=== PATIENT | male | born 1950 | race Caucasian/White ===

== ENCOUNTER 2022-05-25 09:02 | Observation (INO) | payer MEDICARE, BC ==
[2022-05-23 15:36] LABS: BASOPHILS # (AUTO) 0.1 X10'3 (0-0.2); BASOPHILS % (AUTO) 0.9 % (0-1); EOSINOPHILS # (AUTO) 0.2 X10'3 (0-0.9); EOSINOPHILS % (AUTO) 2.5 % (0-6); LYMPHOCYTES # (AUTO) 1.7 X10'3 (1.1-4.8); LYMPHOCYTES % (AUTO) 22.1 % (21-51); MEAN CORPUSCULAR HEMOGLOBIN 30.3 PG (27.0-31.0); MEAN CORPUSCULAR HGB CONC 32.7 g/dL (33.0-36.5); MEAN CORPUSCULAR VOLUME 92.5 FL (78-98); MEAN PLATELET VOLUME 8.3 FL (7.4-10.4); MONOCYTES # (AUTO) 0.5 X10'3 (0-0.9); MONOCYTES % (AUTO) 6.4 % (2-12); NEUTROPHILS # (AUTO) 5.1 X10'3 (1.8-7.7); NEUTROPHILS % (AUTO) 68.1 % (42-75); PRE OP HEMATOCRIT 44.7 % (42.0-52.0); PRE OP HEMOGLOBIN 14.6 g/dL (14.0-17.9); PRE OP PLATELET COUNT 382 X10'3 (140-440); RED BLOOD COUNT 4.83 X10'6 (4.70-6.10); RED CELL DISTRIBUTION WIDTH 14.3 % (11.5-14.5)
[2022-05-23 15:44] LABS: CLARITY,URINE SLIGHTLY CLOUDY (Clear); COLOR,URINE YELLOW (Yellow); GLUCOSE, URINE NEGATIVE (Neg); KETONES,URINE NEGATIVE (Neg); LEUKOCYTE ESTERASE ,URINE MODERATE (Neg); NITRITES, URINE NEGATIVE (Neg); OCCULT BLOOD,URINE NEGATIVE (Neg); PROTEIN,URINE NEGATIVE (Neg); UROBILINOGEN,URINE 0.2 E.U/dL (0.2-1.0)
[2022-05-23 15:45] LABS: UA COLLECTION TYPE CLN CATCH MIDSTREAM
[2022-05-23 15:52] LABS: AMORPHOUS URATES 1+; BACTERIA,URINE 2+ /HPF (Neg); RBC,URINE NONE SEEN /HPF (0-2); SQUAMOUS EPITHELIAL CELL,UR FEW /LPF (FEW)
[2022-05-23 15:53] LABS: AMORPHOUS PHOSPHATES 1+
[2022-05-23 15:58] LABS: ALBUMIN 4.1 G/DL (3.4-5.0); ALBUMIN/GLOBULIN RATIO 1.2 (1.1-1.5); ALKALINE PHOSPHATASE 89 IU/L (46-116); BLOOD UREA NITROGEN 13 MG/DL (7-18); BUN/CREATININE RATIO 12.1 (5.4-32.0); CALCIUM 9.8 MG/DL (8.5-10.1); CHLORIDE 105 MMOL/L (99-107); CREATININE 1.07 MG/DL (0.60-1.10); PRE OP ALT 30 U/L (30-65); PRE OP ANION GAP 8 (8-16); PRE OP AST 19 U/L (10-37); PRE OP BILIRUB, TOTAL 0.5 MG/DL (0.0-1.0); PRE OP GLUCOSE 140 MG/DL (70-104); PRE OP POTASSIUM 3.8 MMOL/L (3.4-5.1); PRE OP SODIUM 140 MMOL/L (135-145); TOTAL CARBON DIOXIDE 27.4 MMOL/L (24-32); TOTAL PROTEIN 7.5 G/DL (6.4-8.2); eGFR 68 ML/MIN
[2022-05-25] VITALS (26 sets, daily range): BP systolic 123–191; BP diastolic 71–118
[~2022-05-25] VITALS: Ht 188 cm; Wt 112.0 kg
[~2022-05-25 09:02] MED LIST: ATOR20TA66 PO; METF-1203 PO; PIOG30TA71 PO; ceFAZolin inj. 2,000 MG in dextrose 5%-water 100 ML IV ONE; famotidine 20mg tablet PO ONE; ringers solution, lacted 1,000 ML IV SCH
--- NOTE | 2022-05-25 09:10 | NUR ---
PT PREPPED FOR SURGERY. PT STATES HE WAS UNABLE TO BE IN THE HOSPITAL WHEN HIS HAD CHILDREN BECAUSE HE REACTES TO BEING IN THE HOSPITAL. BLOOD PRESSURE ELEVATED, RECHECKED AND REMAINS ELEVATED. ANESTHESIA AT BEDSIDE, AWARE OF HYPERTENSION. PT SHAVED AND WIPED BY [facility] TECH. LARGE HERNIA NOTED ON LEFT SIDE, PT STATES SCROTUM IS SWOLLEN AND PENIS IS PUSHED TO THE SIDE ALSO. AT BEDSIDE
[2022-05-25] MEDS ORDERED: labetalol 20mg/4ml (5mg/ml) syringe IV PRN (09:35)
[2022-05-25] MEDS ORDERED: hydrALAZINE 20mg/ml inj. IV PRN (09:35)
[2022-05-25] MEDS ORDERED: ondansetron/PF 4mg/2ml inj IV PRN ×2 (09:35→18:10)
[2022-05-25] MEDS ORDERED: ringers solution, lacted 1,000 ML IV SCH (09:35)
[2022-05-25] MEDS ORDERED: fentaNYL/PF 50MCG/1 ML 2ML syringe IV PRN ×2 (09:35)
[2022-05-25] MEDS ORDERED: BUPIVAcaine 0.5% inj/PF 30 ML ONE (11:55)
[2022-05-25] MEDS ORDERED: LIDOcaine 1% 30ml preserv. free vial ONE (11:55)
[2022-05-25] MEDS ORDERED: sevoflurane 250ml liquid IH ONE (13:20)
[2022-05-25] MEDS ORDERED: neostigmine methylsulfate 1 MG/ML 10ml vial ONE (13:20)
[2022-05-25] MEDS ORDERED: dexamethasone sod phosphate 10mg/ml inj ONE (13:20)
[2022-05-25] MEDS ORDERED: midazolam 1 mg/ML 2ml injection ONE (13:31)
[2022-05-25] MEDS ORDERED: fentaNYL/PF 50MCG/1 ML 2ML syringe ONE ×2 (13:31→14:35)
[2022-05-25] MEDS ORDERED: propofol inj 20 ML IV ONE (13:59)
[2022-05-25] MEDS ORDERED: BUPIVAcaine 0.5% inj/PF 30 ml vial IJ ONE (13:59)
[2022-05-25] MEDS ORDERED: rocuronium 10mg/ml inj IV ONE ×2 (14:00→14:35)
[2022-05-25] MEDS ORDERED: metoclopramide 5 mg/ml inj ONE (14:00)
[2022-05-25] MEDS ORDERED: glycopyrrolate 0.2mg/ml inj ONE (14:00)
[2022-05-25] MEDS ORDERED: ondansetron/PF 4mg/2ml inj ONE (14:00)
[2022-05-25] MEDS ORDERED: hydrALAZINE 20mg/ml inj. IV ONE (14:06)
[2022-05-25] MEDS ORDERED: labetalol 20mg/4ml (5mg/ml) syringe IV ONE (14:06)
[2022-05-25] MEDS ORDERED: LIDOcaine 1%/PF 5ML 10 MG/ML VIAL ONE (14:43)
--- NOTE | 2022-05-25 15:27 | NUR ---
Received from OR via [facility], accompanied by Anesthesiologist DR MENDOZA and report given by Anesthesiologist AND FUEL AGENT. PT AGITATED ATTEMPTING TO GET OOB, NOT FOLLOWING DIRECTIONS OR COMMANDS. ORDERS GIVEN BY DR MENDOZA TO GIVE PT 6 MG MORPHINE. GIVEN ORDERED, PT CONTINUES TO ATTEMPT TO GET OOB AND NOT FOLLOWING COMMANDS,DIRECTIONS, ORDERS TO GIVE ANOTHER 4 MG MORPHINE. GIVEN. PT BECOMING MORE COOPERATIVE AND IS ALBE TO FOLLOW DIRECTIONS, NOT ATTEMPTING TO GET OOB. PT APPEARS LESS PAINFUL. REPEAT DOSE OF 2 MG GIVEN, PT STATES PAIN IS IMPROVING. Addendum: 05/25/22 at 1612 by Catarina Grigsby RN Amended: Links added.
[2022-05-25] MEDS: morphine 2 MG/ML inj. syringe IV PRN ×3 (15:40→16:13)
[2022-05-25] MEDS: morphine 4 MG/ML inj SYRINge IV PRN ×2 (15:40→15:50)
[2022-05-25] MEDS ORDERED: traMADol 50MG tablet PO PRN (18:10)
[2022-05-25] MEDS ORDERED: naloxone 0.4 mg/ml inj IV PRN (18:10)
--- NOTE | 2022-05-25 18:20 | NUR ---
D/C INSTRUCTIONS GIVEN AND GONE OVER W/PT AND PTS WHO VERBALIZED UNDERSTANDING. RN ASSIST PT TO GET DRESSED, PT SITTING AT SIDE AND BED AND STATED HE FEELS WEAK AND WOULD LIKE TO STAY OVERNIGHT. VSS, BP 170/105, CALL INTO DR TYLER AND UPDATED, ORDERS RECEIVED TO KEEP OVERNIGHT. REPEAT BP 142/92. PT REMAINS RESTING. REPORT TO RECEIVING DAPHNE ANDINO. Addendum: 05/25/22 at 1828 by Catarina Grigsby RN Amended: Links added.
--- NOTE | 2022-05-25 19:00 | NUR ---
Patient in room . I have received report from Michael SERNA and had the opportunity to ask questions and assume patient care.
--- NOTE | 2022-05-25 19:00 | NUR ---
PATIENT A&OX4, DENIES PAIN, V/S WNL, CSM INTACT, LAP SITES TO ABDOMEN CDI, SCD ON, 30G PIV RUE, F/C DRAINING CLEAR YELLOW URINE. PATIENT TAKEN TO 350A WITH ALL BELONGINGS AND AT BEDSIDE. PATIENT HOOKED UP TO MONITORS IN ROOM AND REPORT GIVEN TO RN WHO HAS TAKEN OVER PATIENT CARE,
[2022-05-26 02:00] VITALS: BP 139/84
[2022-05-26 06:00] VITALS: BP 140/74
[2022-05-26 06:34] LABS: BASOPHILS % (AUTO) 0.3 % (0-1); EOSINOPHILS % (AUTO) 0.4 % (0-6); HEMATOCRIT 37.8 % (42.0-52.0); HEMOGLOBIN 12.9 g/dl (14.0-17.9); LYMPHOCYTES # (AUTO) 1.4 X10'3 (1.1-4.8); LYMPHOCYTES % (AUTO) 13.4 % (21-51); MEAN CORPUSCULAR HEMOGLOBIN 31.2 PG (27.0-31.0); MEAN CORPUSCULAR VOLUME 91.6 FL (78-98); MEAN PLATELET VOLUME 8.1 FL (7.4-10.4); MONOCYTES # (AUTO) 0.7 X10'3 (0-0.9); NEUTROPHILS # (AUTO) 8.2 X10'3 (1.8-7.7); NEUTROPHILS % (AUTO) 78.9 % (42-75); PLATELET COUNT 330 X10'3 (140-440); RED BLOOD COUNT 4.13 X10'6 (4.70-6.10); RED CELL DISTRIBUTION WIDTH 13.9 % (11.5-14.5); WHITE BLOOD COUNT 10.3 X10'3 (4.5-11.0)
--- NOTE | 2022-05-26 06:36 | NUR ---
Problems reprioritized. Patient report given, questions answered & plan of care reviewed with Jailene SERNA.
--- NOTE | 2022-05-26 07:07 | NUR ---
Patient in room [facility]. I have received report from delroy FOX and had the opportunity to ask questions and assume patient care.
[2022-05-26] MEDS ORDERED: metFORMIN 500mg tablet PO SCH (08:00)
[2022-05-26] MEDS ORDERED: atorvastatin 20mg tablet PO SCH (08:00)
[2022-05-26] MEDS ORDERED: pioglitazone 15mg tablet PO SCH (08:00)
[2022-05-26 10:00] VITALS: BP 150/75
--- NOTE | 2022-05-26 15:00 | NUR ---
Patient discharge records reviewed with patient and at bedside. Education on childs care and how to empty demonstrated to patient and all questions answered. Patients IV dc'd cannula intact. Patient verbalized understanding of all discharge instructions. Patient assisted in getting dressed. Patient was taken to to 's vehicle via wheelchair by auxillary. Patient states he has all belonging
== END 2022-05-26 15:23 | disposition home or self-care (01) ==
LOC: PAS 09:02 → SUR 3N 18:19 → PAS 19:00 → SUR 3N 19:00
PROVIDERS: ADMIT Surgery; ATTEND Surgery
DX: K40.91 Unilateral inguinal hernia, without obstruction or gangrene, recurrent (principal); E11.9 Type 2 diabetes mellitus without complications; Z87.891 Personal history of nicotine dependence
CPT/HCPCS: 36415; 49651; 80053; 81001; 82948; 85025; 87077; 87088; 87186; 93005; C1758; C1781; G0378; J0360; J0690; J1100; J2250; J2270; J2405; J2704; J2710; J2765; J3010; J3490; J7060; J7120; S0020; A4215; A4618